=== PATIENT | male | born 1945 | race Caucasian/White ===

== ENCOUNTER → 2016-08-22 | Outpatient (CLI) | payer OTHER, BC | LOC: MMPC 09:00 | DX: Z79.01 Long term (current) use of anticoagulants (principal); Z51.81 Encounter for therapeutic drug level monitoring; I26.99 Other pulmonary embolism without acute cor pulmonale; D68.2 Hereditary deficiency of other clotting factors | CPT/HCPCS: 85610 ==

== ENCOUNTER → 2016-08-31 | Outpatient (CLI) | payer OTHER, BC | LOC: MMPC 11:11 | PROVIDERS: ATTEND Physician Assistant | DX: J01.90 Acute sinusitis, unspecified (principal) | CPT/HCPCS: 99213; G0463 ==

== ENCOUNTER → 2016-09-22 | Outpatient (CLI) | payer OTHER, BC | LOC: MMPC 09:00 | DX: Z79.01 Long term (current) use of anticoagulants (principal); Z51.81 Encounter for therapeutic drug level monitoring; I26.99 Other pulmonary embolism without acute cor pulmonale; D68.2 Hereditary deficiency of other clotting factors | CPT/HCPCS: 85610 ==

== ENCOUNTER → 2016-10-10 | Outpatient (CLI) | payer OTHER, BC | LOC: MMPC 09:00 | DX: G47.33 Obstructive sleep apnea (adult) (pediatric) (principal); M10.9 Gout, unspecified; E66.9 Obesity, unspecified; I26.99 Other pulmonary embolism without acute cor pulmonale; D68.2 Hereditary deficiency of other clotting factors; I10 Essential (primary) hypertension; E78.5 Hyperlipidemia, unspecified; E11.9 Type 2 diabetes mellitus without complications | CPT/HCPCS: 99213; G0463 ==

== ENCOUNTER → 2016-10-27 | Outpatient (CLI) | payer OTHER, BC | LOC: MMPC 09:00 | DX: Z79.01 Long term (current) use of anticoagulants (principal); Z51.81 Encounter for therapeutic drug level monitoring; I26.99 Other pulmonary embolism without acute cor pulmonale; D68.2 Hereditary deficiency of other clotting factors | CPT/HCPCS: 85610 ==

== ENCOUNTER → 2016-12-22 | Outpatient (CLI) | payer OTHER, BC | LOC: MMPC 09:00 | DX: Z79.01 Long term (current) use of anticoagulants (principal); Z51.81 Encounter for therapeutic drug level monitoring; I26.99 Other pulmonary embolism without acute cor pulmonale; D68.2 Hereditary deficiency of other clotting factors | CPT/HCPCS: 85610 ==

== ENCOUNTER → 2017-01-09 | Outpatient (CLI) | payer OTHER, BC ==
[2017-01-09 12:57] LABS: BASOPHILS # (AUTO) 0.02 10*3/UL; BASOPHILS % (AUTO) 0.3 % (0-1); EOSINOPHILS # (AUTO) 0.08 10*3/UL; EOSINOPHILS % (AUTO) 1.1 % (0-8); HEMATOCRIT 43.8 % (42.0-52.0); HEMOGLOBIN 14.7 g/dL (14.0-18.0); MEAN CORPUSCULAR HEMOGLOBIN 27.9 PG (27-31); MEAN CORPUSCULAR HGB CONC 33.6 g/dL (33-37); MEAN CORPUSCULAR VOLUME 83.3 FL (80-90); MEAN PLATELET VOLUME 10.3 FL (7.4-12.2); MONOCYTES % (AUTO) 9.3 % (5-15); NEUTROPHILS # (AUTO) 5.07 10*3/UL; NEUTROPHILS % (AUTO) 67.5 % (50-80); RED BLOOD COUNT 5.26 10^6/uL (4.70-6.10)
[2017-01-09 12:58] LABS: BILIRUBIN,URINE NEGATIVE (NEG); CLARITY,URINE CLEAR (CLEAR); COLOR,URINE YELLOW; GLUCOSE, URINE (UA) NEGATIVE (NEG); NITRATE,URINE NEGATIVE (NEG); OCCULT BLOOD,URINE NEGATIVE (NEG); PROTEIN,URINE NEGATIVE (NEG)
[2017-01-09 13:01] LABS: PLATELET MORPHOLOGY COMMENT NORMAL MORPHOLOGY (NORM); RBC MORPHOLOGY COMMENT NORMAL MORPHOLOGY (NORM); WBC MORPHOLOGY COMMENT NORMAL MORPHOLOGY (NORM)
[2017-01-09 13:08] LABS: RBC,URINE 0-1 /hpf; SQUAMOUS EPITHELIAL CELL,UR FEW; URINE SAMPLE TYPE VOIDED SPECIMEN
[2017-01-09 13:11] LABS: CREATININE, URINE 132.2 MG/DL (15-500)
[2017-01-09 13:22] LABS: CHOL/HDL RATIO 3.65 RATIO (0-4.0); URIC ACID 4.1 mg/dl (3.8-8.5)
[2017-01-09 13:23] LABS: BLOOD UREA NITROGEN 20 mg/dL (7-22); CALCIUM 9.5 mg/dL (8.7-10.7); EST GLOMERULAR FILTRATION > 60 (>60 ml/min/1.73m(2)); SERUM ALBUMIN 4.1 g/dL (3.5-4.8)
[2017-01-09 13:26] LABS: HEMOGLOBIN A1C 5.92 % (4.2-6.0)
== END ==
LOC: MOB LAB 11:40
DX: E11.9 Type 2 diabetes mellitus without complications (principal); G47.33 Obstructive sleep apnea (adult) (pediatric); E78.5 Hyperlipidemia, unspecified; I10 Essential (primary) hypertension; E55.9 Vitamin D deficiency, unspecified; M10.9 Gout, unspecified; D68.2 Hereditary deficiency of other clotting factors; Z79.01 Long term (current) use of anticoagulants; Z12.5 Encounter for screening for malignant neoplasm of prostate
CPT/HCPCS: 36415; 80053; 80061; 81001; 82043; 82306; 83036; 84443; 84550; 85025; 99213; G0103; G0463

== ENCOUNTER → 2017-01-23 | Outpatient (CLI) | payer OTHER, BC | LOC: MMPC 09:00 | DX: Z79.01 Long term (current) use of anticoagulants (principal); Z51.81 Encounter for therapeutic drug level monitoring; D68.2 Hereditary deficiency of other clotting factors; I26.99 Other pulmonary embolism without acute cor pulmonale | CPT/HCPCS: 85610 ==

== ENCOUNTER → 2017-02-20 | Outpatient (CLI) | payer OTHER, BC | LOC: MMPC 09:00 | DX: Z79.01 Long term (current) use of anticoagulants (principal); Z51.81 Encounter for therapeutic drug level monitoring; I26.99 Other pulmonary embolism without acute cor pulmonale; D68.2 Hereditary deficiency of other clotting factors | CPT/HCPCS: 85610 ==

== ENCOUNTER → 2017-03-16 | Outpatient (CLI) | payer OTHER, BC ==
--- NOTE | 2017-03-16 13:44 | EKG ---
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
[2017-03-16 15:42] LABS: BASOPHILS # (AUTO) 0.02 10*3/UL; BASOPHILS % (AUTO) 0.2 % (0-1); EOSINOPHILS % (AUTO) 1.2 % (0-8); HEMATOCRIT 39.2 % (42.0-52.0); HEMOGLOBIN 13.2 g/dL (14.0-18.0); LYMPHOCYTES # (AUTO) 1.51 10*3/uL; MEAN CORPUSCULAR HGB CONC 33.7 g/dL (33-37); MEAN CORPUSCULAR VOLUME 83.2 FL (80-90); MEAN PLATELET VOLUME 11.2 FL (7.4-12.2); MONOCYTES % (AUTO) 8.7 % (5-15); NEUTROPHILS # (AUTO) 5.71 10*3/UL; NEUTROPHILS % (AUTO) 70.6 % (50-80); RED BLOOD COUNT 4.71 10^6/uL (4.70-6.10)
[2017-03-16 15:44] LABS: PLATELET MORPHOLOGY COMMENT NORMAL MORPHOLOGY (NORM); RBC MORPHOLOGY COMMENT NORMAL MORPHOLOGY (NORM); WBC MORPHOLOGY COMMENT NORMAL MORPHOLOGY (NORM)
[2017-03-16 15:51] LABS: BLOOD UREA NITROGEN 23 mg/dL (7-22); BUN/CREATININE RATIO 25.55 (6-20); CALCIUM 9.1 mg/dL (8.7-10.7); EST GLOMERULAR FILTRATION > 60 (>60 ml/min/1.73m(2)); SERUM ALBUMIN 3.5 g/dL (3.5-4.8)
== END ==
LOC: MOB LAB 13:25
DX: M75.121 Complete rotator cuff tear or rupture of right shoulder, not specified as traumatic (principal); E11.9 Type 2 diabetes mellitus without complications; G47.33 Obstructive sleep apnea (adult) (pediatric); M10.9 Gout, unspecified; E66.9 Obesity, unspecified; Z86.711 Personal history of pulmonary embolism; V86.59XA Driver of other special all-terrain or other off-road motor vehicle injured in nontraffic accident, initial encounter; Y93.89 Activity, other specified; Y92.73 Farm field as the place of occurrence of the external cause
CPT/HCPCS: 36415; 80053; 85025; 93005; 93010

== ENCOUNTER → 2017-03-24 | Outpatient (CLI) | payer OTHER, BC | LOC: MMPC 09:00 | DX: Z79.01 Long term (current) use of anticoagulants (principal); Z51.81 Encounter for therapeutic drug level monitoring; I26.99 Other pulmonary embolism without acute cor pulmonale; D68.2 Hereditary deficiency of other clotting factors | CPT/HCPCS: 85610 ==

== ENCOUNTER → 2017-03-27 | Outpatient (CLI) | payer OTHER, BC | LOC: MMPC 09:00 | DX: Z79.01 Long term (current) use of anticoagulants (principal); Z51.81 Encounter for therapeutic drug level monitoring; I26.99 Other pulmonary embolism without acute cor pulmonale; D68.2 Hereditary deficiency of other clotting factors | CPT/HCPCS: 85610; 99213 ==

== ENCOUNTER 2018-10-24 13:51 | Inpatient (IN) ==
[~2018-10-24 13:51] MED LIST: LIDOCAINE W/ SODIUM BICARB 0.5 ML SYR ONE; Lactated Ringers 1,000 ML PRIMARY IV ONE
[2018-10-24] MEDS ORDERED: MIDAZOLAM HCL 2 MG/2 ML VIAL ONE ×3 (15:33→15:34)
[2018-10-24] MEDS ORDERED: fentaNYL Inj 100 MCG/2 ML VIAL ONE (15:33)
[2018-10-24] MEDS ORDERED: PROPOFOL 10 MG/1 ML (200 MG/20 ML) VIAL IV ONE (15:34)
[2018-10-24] MEDS ORDERED: Ketorolac Inj 30 MG, Morphine Inj (Ortho Cocktail) 4 MG, BUPivacaine Inj 0.25% PF 150 MG SPLASH ONE ×3 (15:35)
[2018-10-24] MEDS ORDERED: Sodium Chloride 0.9% vial 20 ML ONE ×2 (15:59)
[2018-10-24] MEDS ORDERED: BUPivacaine Liposome/PF (Exparel) Inj 20ml vial INFIL ONE (15:59)
[2018-10-24] MEDS ORDERED: BACITRACIN 50,000 UNIT VIAL IRRIG ONE (15:59)
[2018-10-24] MEDS ORDERED: Nasal Sanitizer POPSWAB ampule 3 AMP (Nozin) PREOP DOSE ENOS SCH (16:00)
[2018-10-24] MEDS ORDERED: ceFAZolin Inj 3 GM in Sodium Chloride 0.9% 100 ML IV ONE (16:00)
[2018-10-24] MEDS ORDERED: LIDOCAINE W/ SODIUM BICARB 0.5 ML SYR SUBD ONE (16:00)
[2018-10-24] MEDS ORDERED: Lactated Ringers 1,000 ML PRIMARY IV SCH (16:00)
[2018-10-24] MEDS ORDERED: LIDOCAINE HCL 2 % 10 ML JELLY URO-JECT TOPICAL ONE (16:23)
[2018-10-24] MEDS ORDERED: LIDOCAINE HCL 2 % 10 ML JELLY URO-JECT TOPICAL PRN ×2 (16:44→21:03)
[2018-10-24] MEDS ORDERED: ePHEDrine Inj 50 MG/ML AMP ONE (17:23)
[2018-10-24] MEDS ORDERED: TRANEXAMIC ACID 1,000 MG / 10 ML VIAL ONE ×2 (17:24→18:10)
[2018-10-24] MEDS ORDERED: fentaNYL Inj 250 MCG/5 ML VIAL ONE ×3 (17:32→19:52)
[2018-10-24] MEDS ORDERED: Lactated Ringers 1,000 ML PRIMARY IV ONE (17:52)
[2018-10-24] MEDS ORDERED: ONDANSETRON 4 MG/2 ML VIAL ONE (19:34)
[2018-10-24] MEDS ORDERED: KETOROLAC 30 MG/1 ML VIAL ONE (19:35)
--- NOTE | 2018-10-24 19:44 | ORTHO.OP ---
Surgery Date: 10/24/18 Preoperative Diagnosis: Right knee OA Postoperative Diagnosis: same Procedure: Right TKA Surgeon: Bill Hernandez MD Keying Machine Operator: Jia Frazier PA-C Anesthesia Provider: Juan Diego Gayle MD Anesthesia Type: General, Regional (spinal/adductor) Estimated Blood Loss (mL): 150 Fluids: 1900 mL LR Pathology: none Findings: See Operative Note Indications: See Operative Note Complications: None
[2018-10-24] MEDS ORDERED: MORPHINE SULFATE 2 MG/1 ML IVP PRN (19:48)
[2018-10-24] MEDS ORDERED: LIDOCAINE W/ SODIUM BICARB 0.5 ML SYR SUBD PRN (19:48)
[2018-10-24] MEDS ORDERED: fentaNYL Inj 100 MCG/2 ML VIAL IVP PRN (19:48)
[2018-10-24] MEDS ORDERED: HYDROmorphone 2 MG/1 ML IVP PRN (19:48)
[2018-10-24] MEDS ORDERED: Meperidine Inj 50 MG/ML CARPUJECT IVP PRN (19:48)
--- NOTE | 2018-10-24 19:50 | CRNA.PROGR ---
Anesthesia Time - Procedure/Recovery Time Start Date: 10/24/18 End Date: 10/24/18 Anesthesia : Time In: 16:51 Anesthesia : Time Out: 19:44 Anesthesia : Total Time: 173 - Total Anesthesia Time Total Anesthesia Time (minutes): 173 - Other Weight: 115.666 kg Height: 6 ft Body Mass Index (BMI): 34.5 Anesthesia Type: Spinal Block, General Anesthesia : LMA PostOp Pain Management: Femoral (Single Injection)
--- NOTE | 2018-10-24 19:50 | CRNA.PROGR ---
Anesthesia Recovery Phase I - Post Anesthesia Evaluation Pain Level: 5
--- NOTE | 2018-10-24 19:52 | CRNA.PROCE ---
Nerve Block Documentation - - Type of Nerve Block Used: Right Femoral Nerve Block Position for Nerve Block: Supine Moniters Used During Block: EKG, SPO2, NIBP Oxygen Supplemented: Yes Sedation Used - Enter Amount in Comment Field [ANES.SEDAT]: Midazolam (mg): Yes (6mg), Fentanyl (mcg): Yes (100mcg) Skin Prep Used: ChloroPrep Technique: Ultrasound Nerve Block Needle Used: 100 mm ProBlk II Local Anesthetic - Enter Amt in Comment Field [ANES.LOCNB]: 0.5 % Bupivacaine Plain (mL): Yes (30) - - PreOp Block : Time In: 16:00 PreOp Block : Time Out: 16:15 Anesthesia Time - Other Weight: 115.666 kg Height: 6 ft Body Mass Index (BMI): 34.5
[2018-10-24] MEDS: fentaNYL Inj 250 MCG/5 ML VIAL IVP PRN ×3 (19:53→20:17)
--- NOTE | 2018-10-24 19:54 | CRNA.PROCE ---
Central Neuraxis Block [facility] - - Safety Measures: Time Out Taken - - Type of Block: Subarachnoid Reason for Block: Surgical Moniters Used During Block: EKG, SPO2, NIBP Sedation Used - Enter Amount Used in Comment Field: Midazolam (mg): Yes (6mg), Fentanyl (mcg): Yes (100mcg) Positioning: Lateral Skin Prep Used: ChloroPrep Draped: Yes Skin Infiltration - Enter Amount Used in Comment Field: 1% Xylocaine (mL): Yes (2ml) Spinal Needle Used: 25 Qwincke Local Anesthetic - Enter Amount Used in Comment Field: 0.75 % Bupivacaine with Dextrose (ml): Yes (1.5ml) Bioclusive Dressing Applied: No Anesthesia Time - Block Time PreOp Block : Time In: 16:00 PreOp Block : Time Out: 16:15 - Other Weight: 115.666 kg Height: 6 ft Body Mass Index (BMI): 34.5
[2018-10-24 20:18] LABS: Hematocrit [HCT] 38.9 % (42.0-52.0); Hemoglobin [HGB] 13.6 g/dL (14.0-18.0)
[2018-10-24] MEDS ORDERED: ONDANSETRON 4 MG/2 ML VIAL IVP PRN (21:03)
[2018-10-24] MEDS ORDERED: Warfarin Tab 2.5 MG TAB PO ONE (21:30)
--- NOTE | 2018-10-24 21:38 | PDOC ---
HPI - History of Present Illness Date of Service: 10/24/18 Time of Service: 21:33 Chief Complaint: Right knee pain History of Present Illness: The very pleasant 73-year-old male who is postoperative from a right total knee arthroplasty performed by Dr. Hernandez today. See his notes regarding the surgical procedure. Hospital service was asked to help address and advise on issues such as factor V Leiden with history of 2 prior DVTs although one apparently was a distal popliteal vein DVT, diabetes, hypertension, amongst other medical issues. The patient currently states that he has no complaints of chest pain, shortness breath, nausea or vomiting. He states that he can feel his leg and his toes on the right lower extremity. At this time he has no other complaints. I spoke with his daughter at bedside. The patient is been on Coumadin for nearly 20 years, but is interested in learning more about the new medications. He is not sure he wants to change to one of the novel oral anticoagulants. At this time, the patient remains fairly sleepy and would like to rest tonight. The patient's surgery was actually scheduled for yesterday, but he had hypokalemia so was held off until today and he had a potassium infusion yesterday and his potassium was normal today. The patient's daughter tells me that the patient has hypertension and that he was recently started on a diuretic but I do not know if supplemental potassium was given at that time. He started that medication on Monday prior to surgery. I'm told that he normally runs low normal potassium levels. Past Medical History Medical History: 1. Diabetes mellitus type II. 2. Hypertension. 3. Sleep apnea on CPAP therapy currently with some oxygen at nighttime as well. 4. Gouty arthropathy. 5. History of pulmonary emboli with factor V Leiden. 6. Tremor. 7. Macular degeneration Surgical History: 1. Knee scopes. 2. Shoulder surgery. 3. Tonsillectomy Pertinent Family History: Patient does have a family history of factor V Leiden, including his daughter. Past Social History: Does not smoke or drink alcohol. Lives here in [place], [place]. Tobacco Use: Never Smoker In the Past 12 Months, Have Used or Abuse Any of the Following Substance: None Alcohol Use: None Medication / Allergies Home Medications: Home Medications Medication Instructions Recorded Confirmed Type Aspirin [Aspirin EC] 81 mg PO QD #30 tab 02/03/15 10/24/18 History vit C 250 mg-E 200 unit-zinc 40 1 tab PO BID #1 cap 05/28/18 10/24/18 Rx mg-copper 1 [id number] capsule benazepril 40 mg tablet 40 mg PO QD #90 tab 09/04/18 10/24/18 Rx pravastatin 80 mg tablet 80 mg PO QHS #90 tab 09/04/18 10/24/18 Rx probenecid 500 mg tablet 500 mg PO QD #90 tab 09/04/18 10/24/18 Rx triamterene 37.5 1 cap PO QD #90 cap 09/04/18 10/24/18 Rx mg-hydrochlorothiazide 25 mg capsule warfarin 7.5 mg tablet See Rx Instructions .ROUTE 09/04/18 10/24/18 Rx .COMPLEX #90 tablet potassium chloride ER 10 mEq 10 meq PO QDAY #30 cap 09/28/18 10/24/18 Rx capsule,extended release enoxaparin 120 mg/0.8 mL 120 mg SUBCUT Q12H #8 ml 10/02/18 10/24/18 Rx subcutaneous syringe chlorthalidone 25 mg tablet 25 mg PO QDAY #30 tab 10/11/18 10/24/18 Rx Hydrocodone/Acetaminophen 1 - 2 ea PO Q4-6H PRN #70 tab 10/24/18 Rx [Hydrocodon-Acetaminoph 7.5-325] Allergies/Adverse Reactions: Allergies Allergy/AdvReac Type Severity Reaction Status Date / Time No Known Drug Allergies Allergy NOT Verified 10/23/18 06:02 APPLICABLE Review of Systems - Respiratory Respiratory: REPORTS: Negative System Review - Cardiovascular Cardiovascular: REPORTS: Negative System Review - Gastrointestinal Gastrointestinal / Abdominal: REPORTS: Negative System Review Exam - Vitals Vital Signs: Vital Signs Temperature 96.8 F Temperature Source Temporal Artery Scan Pulse Rate [Pulse Oximeter] 65 Pulse Rate 69 Respiratory Rate 20 Blood Pressure [Left Arm] 155/82 Blood Pressure 165/91 Pulse Ox 95 Oxygen Flow Rate 2 Oxygen Delivery Method Nasal Cannula Height 6 ft Weight 253 lb - General General Appearance: No Acute Distress, Cooperative - Head Head Exam: Normal Inspection, Normocephalic, Atraumatic - Eye Eye Exam: POSITIVE: No Scleral Icterus - ENT ENT Exam: POSITIVE: Mucous Membranes Moist - Neck Neck Exam: JVP is not Raised - Respiratory Respiratory Exam: POSITIVE: Clear to Auscultation - Bilaterally, Breathing Non Labored - Cardiovascular Cardiovascular Exam: POSITIVE: RRR, No Murmur, No Clicks, No Gallops, No Rubs, No JVD - GI/Abdominal GI/Abdominal Exam: POSITIVE: Normal Bowel Sounds, Non Tender, Non Distended, Soft - Rectal Rectal Exam: POSITIVE: Deferred - External Exam: POSITIVE: Deferred Exam: POSITIVE: Deferred - Extremities Extremities Exam: POSITIVE: No Clubbing Present, No Edema Present, No Cyanosis P resent Additional Extremities Exam Details: Creatinine is dressed, ice is in place. Bandage is clean, dry, intact - Neurological Neurological Exam: POSITIVE: Alert, Oriented x 3, No Facial Droop, Speech Intact / Clear Results - Labs CBC and BMP: 10/24/18 20:15 Additional Lab Results: 03/11/13 03/16/17 09/28/18 06:03 15:33 07:17 WBC 7.19 Hgb RDW 13.3 Plt Count 220 Sodium Potassium Chloride Carbon Dioxide Anion Gap BUN Creatinine Estimated GFR > 60 Glucose Hemoglobin A1c Uric Acid Calcium Total Bilirubin AST ALT Alkaline Phosphatase Total Protein Albumin Globulin Albumin/Globulin Ratio Triglycerides Cholesterol LDL Cholesterol, Calc VLDL Cholesterol HDL Cholesterol Cholesterol/HDL Ratio PSA Screen Vitamin D 25-Hydroxy TSH Ur Culture Indicated? 09/28/18 09/28/18 09/28/18 07:17 07:17 07:17 WBC Hgb RDW Plt Count Sodium 141 Potassium Chloride 105 Carbon Dioxide 29 Anion Gap 7 BUN 28 H Creatinine 0.9 Estimated GFR Glucose 92 Hemoglobin A1c 5.29 Uric Acid 6.4 Calcium 9.7 Total Bilirubin 0.5 AST 21 ALT 25 Alkaline Phosphatase 60 Total Protein 7.1 Albumin 4.1 Globulin 3.1 Albumin/Globulin Ratio 1.30 Triglycerides 100 Cholesterol 168 LDL Cholesterol, Calc 105.000 VLDL Cholesterol 20 HDL Cholesterol 43 Cholesterol/HDL Ratio 3.90 PSA Screen 1.54 Vitamin D 25-Hydroxy 44.7 TSH 2.38 Ur Culture Indicated? 10/23/18 10/24/18 10/24/18 05:55 08:04 20:15 WBC Hgb 13.6 L RDW Plt Count Sodium Potassium 3.9 Chloride Carbon Dioxide Anion Gap BUN Creatinine Estimated GFR Glucose Hemoglobin A1c Uric Acid Calcium Total Bilirubin AST ALT Alkaline Phosphatase Total Protein Albumin Globulin Albumin/Globulin Ratio Triglycerides Cholesterol LDL Cholesterol, Calc VLDL Cholesterol HDL Cholesterol Cholesterol/HDL Ratio PSA Screen Vitamin D 25-Hydroxy TSH Ur Culture Indicated? Culture not set - EKG Data -: EKG Interpreted by Me Rate: Normal EKG Shows Normal: Sinus Rhythm - EKG Data EKG Interpretation: Other (this EKG is from 09/28/2018) Assessment and Plan - Patient Problems (1) DM2 (diabetes mellitus, type 2) Current Visit: Yes Status: Acute Code(s): E11.9 - Type 2 diabetes mellitus without complications Qualifiers: Diabetes mellitus local intermodal truck driver insulin use: without local intermodal truck driver use Diabetes stephen litus complication status: without complication Qualified Code(s): E11.9 - Type 2 diabetes mellitus without complications (2) Factor V deficiency Current Visit: Yes Status: Chronic Onset Date: 06/09/14 Code(s): D68.2 - Hereditary deficiency of other clotting factors (3) HTN (hypertension) Current Visit: Yes Status: Chronic Onset Date: 06/09/14 Code(s): I10 - Essential (primary) hypertension Qualifiers: Hypertension type: essential hypertension Qualified Code(s): I10 - Essential (primary) hypertension (4) Hyperlipidemia Current Visit: Yes Status: Chronic Onset Date: 01/09/17 Code(s): E78.5 - Hyperlipidemia, unspecified Qualifiers: Hyperlipidemia type: unspecified Qualified Code(s): E78.5 - Hyperlipidemia, unspecified (5) Obstructive sleep apnea syndrome Current Visit: Yes Status: Chronic Onset Date: 08/15/11 Code(s): G47.33 - Obstructive sleep apnea (adult) (pediatric) (6) Status post right knee replacement Current Visit: Yes Status: Acute Code(s): Z96.651 - Presence of right artificial knee joint - Assessment / Plan Additional Assessment/Plan Details: The patient would be considered high thrombotic risk based on DVT within the preceding 12 months and factor V Leiden status, however as he has had a knee replacement, he is also at major risk to bleed. Per current clinical guidelines, the recommendations would be to resume Coumadin which is already been done. However given that the surgery has just occurred today, I would recommend reducing the Lovenox dose to a prophylactic dose for at least the first 24 hours. Once the surgical bed is secured from the surgeon's perspective from a bleeding risk, on day 2 her day 3, full dose Lovenox therapy could be treated until an INR is between 2.0 and 3.0 for 48 hours and then discontinue Lovenox. This can be [facility] a.[facility] PT and OT. Pain medications as per orthopedics. Terms of his by mouth medications at home, I'm going to hold off on DIONE inhibitor. Although he is hypertensive but like to see what his volume status does over the next 24 hours before initiating an DIONE inhibitor as they are known to cause perioperative and postoperative renal failure and hypotension. We can resume that in the next 12-24 hours assuming patient has euvolemic status. I will go ahead and resume the chlorthalidone with potassium. Given the multiple electrolyte problems that I see with triamterene hydrochlorothiazide in the setting of surgery is all just hold that medication for now and he can resume that as an outpatient. We'll talk to him about his choices in terms of anticoagulation, for the long- term, and even consider helping the patient arrange a hematology evaluation post hospital stay. Thank you for this consult and will be our pleasure to continue to advise and assist in the management of this patient during his hospital stay.
[2018-10-24] MEDS: ASPIRIN EC 81 MG TABLET PO SCH (22:16)
[2018-10-24] MEDS ORDERED: ENOXAPARIN SODIUM 40 MG/0.4 ML SYRINGE SUBCUT ONE (22:18)
[2018-10-24] MEDS: ENOXAPARIN SODIUM 120 MG/0.8 ML SYRINGE SUBCUT SCH (22:19)
[2018-10-24] MEDS: Pravastatin 80mg Tab PO SCH (22:32)
[2018-10-24] MEDS: DOCUSATE 100 MG CAPSULE PO SCH (22:32)
[2018-10-24] MEDS: Lactated Ringers 1,000 ML PRIMARY IV SCH (22:32)
--- NOTE | 2018-10-25 00:20 | DI ---
XR KNEE 1 OR 2 VWS,10/24/2018 7:53 PM: Clinical History: Status post right total knee arthroplasty. Previous Exam: September 12, 2011 Findings: AP and lateral views of the right knee are obtained, and demonstrate anatomic alignment without fract ures. Patient is status post right total knee arthroplasty. There is subcutaneous air noted. There is no hardware loosening. Impression: Status post right total knee arthroplasty.
[2018-10-25] MEDS: ceFAZolin Inj 3 GM in Sodium Chloride 0.9% 100 ML IV SCH ×2 (01:04→11:04)
[2018-10-25] MEDS: HYDROcodone-APAP 7.5 MG-325 MG TABLET PO PRN ×3 (01:06→17:31)
[2018-10-25 05:50] LABS: Hematocrit [HCT] 34.8 % (42.0-52.0); Hemoglobin [HGB] 11.5 g/dL (14.0-18.0); MEAN CORPUSCULAR HEMOGLOBIN 28.1 PG (27-31); MEAN CORPUSCULAR VOLUME 85.1 FL (80-90); MEAN PLATELET VOLUME 10.3 FL (7.4-12.2); RED BLOOD COUNT 4.09 10^6/uL (4.70-6.10)
[2018-10-25] MEDS ORDERED: LIDOCAINE W/ SODIUM BICARB 0.5 ML SYR SUBD ONE (06:00)
[2018-10-25] MEDS ORDERED: ceFAZolin Inj 2gm (Premix) 2 GM/50 ML BAG IV ONE (06:00)
[2018-10-25] MEDS ORDERED: Nasal Sanitizer POPSWAB ampule 3 AMP (Nozin) PREOP DOSE ENOS SCH (06:00)
[2018-10-25] MEDS ORDERED: Lactated Ringers 1,000 ML PRIMARY IV SCH (06:00)
[2018-10-25 06:17] LABS: BLOOD UREA NITROGEN 21 mg/dL (7-22); BUN/CREATININE RATIO 26.25 (6-20)
[2018-10-25] MEDS: DOCUSATE 100 MG CAPSULE PO SCH ×2 (08:48→22:17)
[2018-10-25] MEDS: ENOXAPARIN SODIUM 120 MG/0.8 ML SYRINGE SUBCUT SCH ×2 (08:48→22:17)
[2018-10-25] MEDS: ASPIRIN EC 81 MG TABLET PO SCH (08:48)
[2018-10-25] MEDS: CHLORTHALIDONE 50 MG TABLET PO SCH (08:48)
[2018-10-25] MEDS: Beta Carot W/Vit E,C,Min Tab 1 TAB TAB PO SCH ×2 (08:49→22:16)
[2018-10-25] MEDS ORDERED: Potassium Chloride Tab 10 MEQ TAB PO SCH (09:00)
--- NOTE | 2018-10-25 09:21 | ORTHO.PROG ---
Last Taken Vital Signs: Vital Signs - Last Taken Temperature 98.7 F 10/25/18 07:01 Pulse Rate 63 10/25/18 07:01 Respiratory Rate 12 10/25/18 07:01 Blood Pressure 126/65 10/25/18 07:01 Pulse Ox 96 10/25/18 07:01 Subjective: Patient reports he was able to get some sleep last night. He states his pain is controlled currently. He has only taken 1 pain pill through the night. Denies any calf pain, CP, SOB, F/C, palpitations, dizziness. He is ready to go home today. Objective: Laboratory Results 10/24/18 10/24/18 10/25/18 14:09 20:15 05:20 WBC 10.47 RBC 4.09 L Hgb 13.6 L 11.5 L Hct 38.9 L 34.8 L MCV 85.1 MCH 28.1 MCHC 33.0 RDW Std Deviation 45.1 RDW Coeff of Kevin 14.8 H Plt Count 199 MPV 10.3 PT 10.4 INR 1.02 Sodium Potassium Chloride Carbon Dioxide Anion Gap BUN Creatinine BUN/Creatinine Ratio Glucose Calculated Osmolality Calcium 10/25/18 05:20 WBC RBC Hgb Hct MCV MCH MCHC RDW Std Deviation RDW Coeff of Kevin Plt Count MPV PT INR Sodium 137 Potassium 3.5 L Chloride 102 Carbon Dioxide 29 Anion Gap 6 BUN 21 Creatinine 0.8 BUN/Creatinine Ratio 26.25 H Glucose 98 Calculated Osmolality 286.0 Calcium 8.8 On exam, A&O x 3 not in any acute distress. Dressing c/d/i. Negative calf tenderness. NV intact. AROM of the ankle and toes without difficulties. Assessment: POD 1 s/p Right routine TKA overall doing well. Patient does have hypokalemia. Plan: * hypokalemia: getting IV KCl today per hospitalist and taking baseline PO as well * H/H stable * continue hydrocodone for PO pain * DVT ppx: continue lovenox bridge with baseline coumadin * knee immobilizer while ambulating x 24 hours for spinal block; may d/c once cleared by PT * WBAT with walker * PT per TKA protocol * Wound care: may remove on POD 3 and shower, no soaking the incision * discharge home once cleared by hospitalist and PT * follow-up with ortho in 1 week as scheduled
[2018-10-25] MEDS: Lactated Ringers 1,000 ML PRIMARY IV SCH ×2 (10:23→20:01)
[2018-10-25] MEDS: PROBENECID 500 MG PO SCH (10:25)
--- NOTE | 2018-10-25 10:27 | PTI REPORT ---
Thank you for the referral of Greg Lima. He was seen on 10/25/18 for an inpatient evaluation status post right total knee arthroplasty. SUBJECTIVE: The patient is a 73-year-old male who underwent a right total knee replacement yesterday by Dr. Hernandez. The patient was in his room rating his knee pain at a 4/10 on the verbal analog scale (0=no pain, 10=worst pain). PAST MEDICAL HISTORY: Past medical history can be found in the patient's medical record. OBJECTIVE FINDINGS: General observations: The patient is alert and oriented x3. The patient was placed in his knee immobilizer. Bed mobility: The patient transferred from supine to sit with moderate assist of one. Transfers: The patient transferred from sit to stand with moderate assist of one. Ambulation: The patient ambulated approximately 10 steps to the miky chair with use of a walker. The patient states there was a few tender moments throughout the transition, but he tolerated it well. ASSESSMENT: The patient is well versed in expectations for his knee. He will be very compliant and a willing participant. The patient is a good candidate for rehabilitation. Problem List: Pain in the right knee Decreased strength in the right knee Decreased range of motion in the right knee Short-Term Goals: To be met by discharge from inpatient: Patient will be able to transfer from bed to stand independently. Patient will be able to ambulate 100 feet with walker, weight-bearing as tolerated. Patient will be able to ascend and descend five stairs with walker, weight- bearing as tolerated. Long-Term Goals: To be met following discharge from inpatient: Patient will be seen by outpatient physical therapy. TREATMENT PLAN: Patient will be seen B.I.D during the week and one time per day over the weekend as an inpatient for transfer training, ambulation, stairs, and independence in all ADLs. INITIAL TREATMENT: Treatment today consisted of the initial evaluation activities only. CAT
--- NOTE | 2018-10-25 10:38 | CRNA.PROGR ---
Anesthesia Note - Progress Notes Anesthesia Progress Note: Post OP Anesthesia Note Pt is sitting up in bedside recliner. He is awake alert and oriented, he denies any significant pain. He is tolerating a regular diet well and denies any residual problems from the anesthetic. Current VS are stable. Vital Signs - Last Taken Temperature 98.7 F 10/25/18 07:01 Pulse Rate 63 10/25/18 07:01 Respiratory Rate 12 10/25/18 07:01 Blood Pressure 126/65 10/25/18 07:01 Pulse Ox 96 10/25/18 07:01
--- NOTE | 2018-10-25 15:51 | PT.PROG ---
Progress Note Progress Note: S. Patient stated that he is having a little pain this afternoon. O. Patient performed sit to stand transfer then ambulated 20 feet to the sink and back to the chair where he was left with nursing. A. Patient tolerated ambulation fair, he was struggling with mobility during ambulation, Patient was showing signs of pain however refusing pain. He would continue to benefit from skilled therapy to increase mobility, strength and safety at this time. P. Continue POC.
[2018-10-25] MEDS ORDERED: ACETAMINOPHEN 500 MG TABLET PO PRN (17:01)
--- NOTE | 2018-10-25 19:44 | PDOC(PROG) ---
Date of Service: 10/25/18 Time of Service: 11:00 Interval History: no chest pain, no shortness of breath. stated to me knee pain is controlled. Objective : Data - Labs CBC and BMP: 10/25/18 05:20 10/25/18 05:20 Objective : Exam - General General Appearance: No Acute Distress, Cooperative Additional General Exam Details: Selected Entries 10/25/18 07:01 Temperature 98.7 F Pulse Rate [Pulse Oximeter] 63 Respiratory Rate 12 Blood Pressure [Left Arm] 126/65 Pulse Ox 96 - Eye Eye Exam: No Scleral Icterus - ENT ENT Exam: Mucous Membranes Moist - Neck Neck Exam: JVP is not Raised - Respiratory Respiratory Exam: Clear to Auscultation - Bilaterally, Breathing Non Labored - Cardiovascular Cardiovascular Exam: RRR, No Murmur, No Clicks, No Gallops, No Rubs, No JVD - GI/Abdominal GI/Abdominal Exam: Normal Bowel Sounds, Non Tender, Non Distended, Soft - Extremities Extremities Exam: No Clubbing Present, No Edema Present, No Cyanosis Present Additional Extremities Exam Details: right lower extremity dressed, knee immobilizer in place - Neurological Neurological Exam: Alert, Oriented x 3, No Facial Droop, Speech Intact / Clear Assessment and Plan - Patient Problems (1) DM2 (diabetes mellitus, type 2) Current Visit: Yes Status: Acute Code(s): E11.9 - Type 2 diabetes mellitus without complications Qualifiers: Diabetes mellitus termination clerk insulin use: without termination clerk use Diabetes mellitus complication status: without complication Qualified Code(s): E11.9 - Type 2 diabetes mellitus without complications (2) Factor V deficiency Current Visit: Yes Status: Chronic Onset Date: 06/09/14 Code(s): D68.2 - Hereditary deficiency of other clotting factors (3) HTN (hypertension) Current Visit: Yes Status: Chronic Onset Date: 06/09/14 Code(s): I10 - Essential (primary) hypertension Qualifiers: Hypertension type: essential hypertension Qualified Code(s): I10 - Ess ential (primary) hypertension (4) Hyperlipidemia Current Visit: Yes Status: Chronic Onset Date: 01/09/17 Code(s): E78.5 - Hyperlipidemia, unspecified Qualifiers: Hyperlipidemia type: unspecified Qualified Code(s): E78.5 - Hyperlipidemia, unspecified (5) Obstructive sleep apnea syndrome Current Visit: Yes Status: Chronic Onset Date: 08/15/11 Code(s): G47.33 - Obstructive sleep apnea (adult) (pediatric) (6) Status post right knee replacement Current Visit: Yes Status: Acute Code(s): Z96.651 - Presence of right artificial knee joint - Assessment / Plan Additional Assessment/Plan Details: will discontinue triamterene/HCTZ. replace potassium lovenox/coumadin to therapeutic INR, I'd recommend continuing bridging for 48 hours from therapeutic INR PT and OT pain control as per orthopedics
[2018-10-25] MEDS ORDERED: Warfarin Tab 2.5 MG TAB PO ONE (21:00)
[2018-10-25] MEDS: Pravastatin 80mg Tab PO SCH (22:17)
[2018-10-26 05:04] LABS: Hematocrit [HCT] 33.1 % (42.0-52.0); Hemoglobin [HGB] 11.1 g/dL (14.0-18.0); MEAN CORPUSCULAR HEMOGLOBIN 28.2 PG (27-31); MEAN CORPUSCULAR HGB CONC 33.5 g/dL (33-37); MEAN CORPUSCULAR VOLUME 84.2 FL (80-90); MEAN PLATELET VOLUME 10.7 FL (7.4-12.2); RED BLOOD COUNT 3.93 10^6/uL (4.70-6.10)
[2018-10-26 05:21] LABS: BLOOD UREA NITROGEN 16 mg/dL (7-22)
[2018-10-26] MEDS: Potassium Chloride Tab 10 MEQ TAB PO SCH (08:11)
[2018-10-26] MEDS: Beta Carot W/Vit E,C,Min Tab 1 TAB TAB PO SCH ×2 (08:12→20:20)
[2018-10-26] MEDS: DOCUSATE 100 MG CAPSULE PO SCH ×2 (08:12→20:20)
[2018-10-26] MEDS: ENOXAPARIN SODIUM 120 MG/0.8 ML SYRINGE SUBCUT SCH ×2 (08:12→20:20)
[2018-10-26] MEDS: ASPIRIN EC 81 MG TABLET PO SCH (08:12)
[2018-10-26] MEDS: CHLORTHALIDONE 50 MG TABLET PO SCH (08:12)
[2018-10-26] MEDS: BENAZEPRIL HCL 20 MG TABLET PO SCH (08:12)
[2018-10-26] MEDS: PROBENECID 500 MG PO SCH (09:09)
--- NOTE | 2018-10-26 09:23 | ORTHO.PROG ---
Progress Note -: Vital Signs - Last Taken Temperature 98.6 F 10/26/18 06:58 Pulse Rate 76 10/26/18 06:58 Respiratory Rate 18 10/26/18 06:58 Blood Pressure 139/67 10/26/18 06:58 Pulse Ox 95 10/26/18 06:58 Laboratory Results 10/26/18 10/26/18 04:10 04:10 WBC 12.97 H RBC 3.93 L Hgb 11.1 L Hct 33.1 L MCV 84.2 MCH 28.2 MCHC 33.5 RDW Std Deviation 43.7 RDW Coeff of Kevin 14.5 Plt Count 171 MPV 10.7 Sodium 132 L Potassium 3.2 L Chloride 98 Carbon Dioxide 26 Anion Gap 8 BUN 16 Creatinine 0.8 BUN/Creatinine Ratio 20.00 Glucose 129 H Calculated Osmolality 276.0 Calcium 8.6 L Magnesium 1.6 Subjective: - Postop Day [1] Objective: - Taking PO pain medication - Tolerating regular diet - No Walton - voiding without difficulty - Ambulating - Labs and Vital Signs reviewed Assessment: - CMS intact - Prevena dressing intact Plan: - Discharge home once cleared by Physical Therapy - Nursing to provide and educated patient on changing dressing to a Silverlon dressing on postop day 7 or if Pervena losses suction before postop day 7
--- NOTE | 2018-10-26 09:29 | ORTHO.PROG ---
Progress Note -: Vital Signs - Last Taken Temperature 98.6 F 10/26/18 06:58 Pulse Rate 76 10/26/18 06:58 Respiratory Rate 18 10/26/18 06:58 Blood Pressure 139/67 10/26/18 06:58 Pulse Ox 95 10/26/18 06:58 Laboratory Results 10/26/18 10/26/18 04:10 04:10 WBC 12.97 H RBC 3.93 L Hgb 11.1 L Hct 33.1 L MCV 84.2 MCH 28.2 MCHC 33.5 RDW Std Deviation 43.7 RDW Coeff of Kevin 14.5 Plt Count 171 MPV 10.7 Sodium 132 L Potassium 3.2 L Chloride 98 Carbon Dioxide 26 Anion Gap 8 BUN 16 Creatinine 0.8 BUN/Creatinine Ratio 20.00 Glucose 129 H Calculated Osmolality 276.0 Calcium 8.6 L Magnesium 1.6 Subjective: - Postop Day [2 . pain controlled. no CP or SOB or Calf pain. Objective: - Taking PO pain medication - Tolerating regular diet - No Walton - voiding without difficulty - Ambulating no calf ttp - Labs and Vital Signs reviewed K=3.2 H/H Assessment: - CMS intact - Prevena dressing intact Plan: - Discharge home once cleared by Physical Therapy - Nursing to provide and educated patient on changing dressing to a Silverlon dressing on postop day 7 or if Pervena losses suction before postop day 7
[2018-10-26] MEDS ORDERED: POTASSIUM CHLORIDE 20 MEQ TAB PO ONE ×2 (10:03→12:39)
--- NOTE | 2018-10-26 12:10 | PT.PROG ---
Progress Note Progress Note: S. Patient stated that he is having some pain with movement. O. Patient ambulated 30 feet to the maldonado and back to the chair where he was left with alarm and call light. A. Patient tolerated ambulation fair, he required mod assist with sit to stand transfers and contact guard assist. Patient would continue to benefit from skilled therapy to increase strength, endurance and safety at this time. P. Continue POC.
--- NOTE | 2018-10-26 12:54 | PDOC(PROG) ---
Date of Service: 10/26/18 Time of Service: 12:51 Interval History: Patient seen, evaluated twice today. Discussed with daughter, Latia at bedside as well. No chest pain, shortness breath, nausea or vomiting. Potassium was low at 3.2. Patient does not do stairs yet for therapy. Endurance has been slow to improve. Objective : Data - Labs CBC and BMP: 10/26/18 04:10 10/26/18 04:10 Objective : Exam - General General Appearance: No Acute Distress, Cooperative Additional General Exam Details: Vital Signs - Last Taken Temperature 98.6 F 10/26/18 06:58 Pulse Rate 76 10/26/18 06:58 Respiratory Rate 18 10/26/18 06:58 Blood Pressure 139/67 10/26/18 06:58 Pulse Ox 95 10/26/18 06:58 - Eye Eye Exam: No Scleral Icterus - ENT ENT Exam: Mucous Membranes Moist - Neck Neck Exam: JVP is not Raised - Cardiovascular Cardiovascular Exam: RRR, No Murmur, No Clicks, No Gallops, No Rubs, No JVD - GI/Abdominal GI/Abdominal Exam: Normal Bowel Sounds, Non Tender, Non Distended, Soft - Extremities Extremities Exam: No Clubbing Present, No Edema Present, No Cyanosis Present - Neurological Neurological Exam: Alert, Oriented x 3, No Facial Droop, Speech Intact / Clear, Moves All Extremities Equally Assessment and Plan - Patient Problems (1) Hypokalemia Current Visit: Yes Status: Acute Code(s): E87.6 - Hypokalemia (2) DM2 (diabetes mellitus, type 2) Current Visit: Yes Status: Acute Code(s): E11.9 - Type 2 diabetes mellitus without complications Qualifiers: Diabetes mellitus buttermaker helper insulin use: without fpc use Diabetes mellitus complication status: without complication Qualified Code(s): E11.9 - Type 2 diabetes mellitus without complications (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 Onset Date: 06/09/14 Code(s): D68.2 - Hereditary deficiency of other clotting factors (4) HTN (hypertension) Current Visit: Yes Status: Chronic Onset Date: 06/09/14 Code(s): I10 - Essential (primary) hypertension Qualifiers: Hypertension type: essential hypertension Qualified Code(s): I10 - Essential (primary) hypertension (5) Hyperlipidemia Current Visit: Yes Status: Chronic Onset Date: 01/09/17 Code(s): E78.5 - Hyperlipidemia, unspecified Qualifiers: Hyperlipidemia type: unspecified Qualified Code(s): E78.5 - Hyperlipidemia, unspecified (6) Obstructive sleep apnea syndrome Current Visit: Yes Status: Chronic Onset Date: 08/15/11 Code(s): G47.33 - Obstructive sleep apnea (adult) (pediatric) (7) Status post right knee replacement Current Visit: Yes Status: Acute Code(s): Z96.651 - Presence of right artificial knee joint - Assessment / Plan Additional Assessment/Plan Details: Stop thiazide diuretics altogether. Replace potassium aggressively. I think the patient should have a routine in and aldosterone level measured. I had also ordered for tomorrow. Best the patient stays overnight as he could have underlying hyperaldosteronism causing hypertension and hypokalemia. This is further worsened in the setting of thiazide diuretics in terms of the hypokalemia. Still has more PT and OT gains to be safe for discharge to home. On Lovenox and Coumadin. Hopefully home tomorrow or Monday. Check potassium levels in morning. We'll also check a level this afternoon. Patient and daughter are in agreement with plan.
[2018-10-26] MEDS: HYDROcodone-APAP 7.5 MG-325 MG TABLET PO PRN (16:25)
--- NOTE | 2018-10-26 17:02 | PT.PROG ---
Progress Note Progress Note: S. Patient stated that he did not want to take any pain meds before going to therapy. A. Patient ambulated 30 feet to the wheelchair and was wheeled to the therapy gym where he had heat to his knee then performed, heel slides, quad sets, ankle pumps, short arc quads, all x 10. Patient ambulated 10 feet to the chair and was returned to his room where he transferred to the chair and was left with call light. A. Patient tolerated therapy poor, he was in too much pain to complete all exercises. Patient would continue to benefit from skilled therapy to meet goals. P. Continue POC.
[2018-10-26 18:00] LABS: BLOOD UREA NITROGEN 18 mg/dL (7-22)
[2018-10-26] MEDS: Pravastatin 80mg Tab PO SCH (20:20)
[2018-10-26] MEDS ORDERED: Warfarin Tab 2.5 MG TAB PO ONE (21:00)
[2018-10-27] MEDS: ASPIRIN EC 81 MG TABLET PO SCH (08:03)
[2018-10-27] MEDS: Beta Carot W/Vit E,C,Min Tab 1 TAB TAB PO SCH ×2 (08:03→20:17)
[2018-10-27] MEDS: HYDROcodone-APAP 7.5 MG-325 MG TABLET PO PRN ×2 (08:03→14:03)
[2018-10-27] MEDS: Potassium Chloride Tab 10 MEQ TAB PO SCH (08:03)
[2018-10-27] MEDS: ENOXAPARIN SODIUM 120 MG/0.8 ML SYRINGE SUBCUT SCH ×2 (08:03→20:16)
[2018-10-27] MEDS: DOCUSATE 100 MG CAPSULE PO SCH ×2 (08:03→20:17)
[2018-10-27] MEDS: BENAZEPRIL HCL 20 MG TABLET PO SCH (08:03)
[2018-10-27 08:18] LABS: Hematocrit [HCT] 28.9 % (42.0-52.0); Hemoglobin [HGB] 10.4 g/dL (14.0-18.0); MEAN CORPUSCULAR HEMOGLOBIN 29.9 PG (27-31); MEAN PLATELET VOLUME 9.9 FL (7.4-12.2); RED BLOOD COUNT 3.48 10^6/uL (4.70-6.10)
[2018-10-27 08:26] LABS: BLOOD UREA NITROGEN 18 mg/dL (7-22)
[2018-10-27] MEDS ORDERED: POTASSIUM CHLORIDE 20 MEQ TAB PO ONE ×2 (09:08→15:07)
[2018-10-27] MEDS ORDERED: Magnesium Sulfate 2gm (Premix) 2 GM/50 ML BAG IV ONE (09:08)
[2018-10-27] MEDS: PROBENECID 500 MG PO SCH (09:51)
--- NOTE | 2018-10-27 12:04 | OT.PROG ---
Progress Note Progress Note: S: pt reported he was doing ok. It was reported by his daughter that he has not been in his CPM much. O: pt was seen in room and competed bed mobility with mod A. He did complete transfer to [place] with mod INd as it took him longer to complete. He was transferred down to therapy in / and received moist heat. He completed SAQ, ankle pumps, 4 way ankle, heel slides all which required some tactile/passive assistance. He sat up with min A and completed LAQ all mainly passive. He was unable to perform ankle pumps in upright position. He needed min A to completed sit to stand and transferred back to [facility]. He returned to his room and was left in CPM for 1 hr. A: pt was instructed to be in CPM for one hr in morning and two in afternoon. He may benefit from continued therapy before d/c home to develop more quad control and Ind during transfers. It was discussed with pt to maybe stay through Monday. P: continue per pOC.
[2018-10-27] MEDS ORDERED: CELECOXIB 200 MG CAPSULE PO ONE (13:09)
--- NOTE | 2018-10-27 15:14 | PDOC(PROG) ---
Date of Service: 10/27/18 Time of Service: 15:07 Interval History: patient seen, evaluated earlier, discussed with daughter no chest pain no shortness of breath no nausea or vomiting daughter thinks patient has been a little more tired in AM, seems to be more alert in AM PATIENT DOES NOT HAVE DIABETES PT/OT report patient still struggling with quad muscle firing on right side, still needs more time with therapy. Objective : Data - Labs CBC and BMP: 10/27/18 08:05 10/27/18 08:05 Objective : Exam - General General Appearance: No Acute Distress, Cooperative Additional General Exam Details: Vital Signs - Last Taken Temperature 98.6 F 10/27/18 11:48 Pulse Rate 70 10/27/18 11:48 Respiratory Rate 21 10/27/18 11:48 Blood Pressure 134/66 10/27/18 11:48 Pulse Ox 95 10/27/18 11:48 - Eye Eye Exam: No Scleral Icterus - ENT ENT Exam: Mucous Membranes Moist - Neck Neck Exam: JVP is not Raised - Respiratory Respiratory Exam: Clear to Auscultation - Bilaterally, Breathing Non Labored - Cardiovascular Cardiovascular Exam: RRR, No Murmur, No Clicks, No Gallops, No Rubs, No JVD - GI/Abdominal GI/Abdominal Exam: Normal Bowel Sounds, Non Tender, Non Distended, Soft - Extremities Extremities Exam: No Clubbing Present, No Edema Present, No Cyanosis Present Additional Extremities Exam Details: incision is dressed with a clean, dry, intact dressing, swelling about as expected in knee and surrounding tissues out from knee replacement. 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 Onset Date: 06/09/14 Code(s): D68.2 - Hereditary deficiency of other clotting factors (3) HTN (hypertension) Current Visit: Yes Status: Chronic Onset Date: 06/09/14 Code(s): I10 - Essential (primary) hypertension Qualifiers: Hypertension type: essential hypertension Qualified Code(s): I10 - Essential (primary) hypertension (4) Hyperlipidemia Current Visit: Yes Status: Chronic Onset Date: 01/09/17 Code(s): E78.5 - Hyperlipidemia, unspecified Qualifiers: Hyperlipidemia type: unspecified Qualified Code(s): E78.5 - Hyperlipidemia, unspecified (5) Obstructive sleep apnea syndrome Current Visit: Yes Status: Chronic Onset Date: 08/15/11 Code(s): G47.33 - Obstructive sleep apnea (adult) (pediatric) (6) Status post right knee replacement Current Visit: Yes Status: Acute Code(s): Z96.651 - Presence of right artificial knee joint - Assessment / Plan Additional Assessment/Plan Details: replace potassium and magnesium BMP, mag level in AM renin/aldosterone level drawn, pending. consider spironolactone if BPs start to go up check PT and INR in AM will try to have [employer] evaluate CPAP and concentrator at home PT and OT, CPM today. pain control (patient VERY reluctant to take narcotics) I removed diabetes from the problem list. This patient does not have diabetes mellitus.
[2018-10-27] MEDS: Pravastatin 80mg Tab PO SCH (20:16)
[2018-10-28] MEDS: HYDROcodone-APAP 7.5 MG-325 MG TABLET PO PRN ×2 (03:15→07:23)
[2018-10-28 05:03] LABS: BLOOD UREA NITROGEN 23 mg/dL (7-22); BUN/CREATININE RATIO 25.55 (6-20)
[2018-10-28] MEDS ORDERED: Potassium Chloride Tab 10 MEQ TAB PO ONE (08:48)
[2018-10-28] MEDS: ENOXAPARIN SODIUM 120 MG/0.8 ML SYRINGE SUBCUT SCH ×2 (09:13→22:42)
[2018-10-28] MEDS: DOCUSATE 100 MG CAPSULE PO SCH ×2 (09:14→20:39)
[2018-10-28] MEDS: Beta Carot W/Vit E,C,Min Tab 1 TAB TAB PO SCH ×2 (09:14→20:39)
[2018-10-28] MEDS: BENAZEPRIL HCL 20 MG TABLET PO SCH (09:14)
[2018-10-28] MEDS: ASPIRIN EC 81 MG TABLET PO SCH (09:15)
[2018-10-28] MEDS: PROBENECID 500 MG PO SCH (10:24)
[2018-10-28] MEDS: Potassium Chloride Tab 10 MEQ TAB PO SCH (11:04)
--- NOTE | 2018-10-28 11:20 | OT.PROG ---
Progress Note Progress Note: S: pt/nursing reported that he had been on CPM already this morning for about 2 hrs. O: pt was seen in his room and upon arrival was on the CPM. He completed bed mobility with Mod A. He did complete transfer to bathroom with CGA for safety at all times. After using restroom he transferred out to the hallway to sit in w/c. It was noticed at this time that bandage did have a small amount of blood present. He was transferred downstairs where he needed min A to complete sit to stand with min A and bed mobility mOd A. He received moist heat to affected knee in preparation for activity. He completed 4-way ankle, SAQ, glute squeezes, quad sets and heel slides. He needed mod A to sit on up from supine position. He competed LAQ and light PROM while upright. A silverlon dressing was applied upon completion of therapy. A: pt is having difficulty with all exercises as most were completed passively. Highly recommend pt participate in another day or possible SB for therapy as he is lacking a lot of function and movement of LE. Recommended CPM another 3 hrs throughout the afternoon and into the night. P: continue per POC.
[2018-10-28] MEDS ORDERED: Spironolactone Tab 25 MG TAB PO ONE (11:26)
[2018-10-28] MEDS ORDERED: POTASSIUM CHLORIDE 20 MEQ TAB PO ONE (17:40)
--- NOTE | 2018-10-28 17:42 | PDOC(PROG) ---
Date of Service: 10/28/18 Time of Service: 17:37 Interval History: Patient seen and evaluated earlier. Discussed with daughter. Feels a little more alert and stronger this morning. Still struggling with quad firing in terms of his therapy. No chest pain, shortness breath, nausea or vomiting. Patient and his daughter would be interested in the patient starting on spironolactone as they are much more convinced that this could be hyperaldosteronism as one of the symptoms as muscle weakness and the patient has been frequently as well. Objective : Data - Labs CBC and BMP: 10/27/18 08:05 10/28/18 04:10 Objective : Exam - General General Appearance: No Acute Distress, Cooperative Additional General Exam Details: Vital Signs - Last Taken Temperature 98.8 F 10/28/18 16:30 Pulse Rate 76 10/28/18 16:30 Respiratory Rate 18 10/28/18 16:30 Blood Pressure 140/55 10/28/18 16:30 Pulse Ox 95 10/28/18 16:30 - Eye Eye Exam: No Scleral Icterus - ENT ENT Exam: Mucous Membranes Moist - Neck Neck Exam: JVP is not Raised - Respiratory Respiratory Exam: Clear to Auscultation - Bilaterally, Breathing Non Labored - Cardiovascular Cardiovascular Exam: RRR, No Murmur, No Clicks, No Gallops, No Rubs, No JVD - GI/Abdominal GI/Abdominal Exam: Normal Bowel Sounds, Non Tender, Non Distended, Soft - Extremities Extremities Exam: No Clubbing Present, No Edema Present, No Cyanosis Present Additional Extremities Exam Details: Right lower extremity has some edema, but overall not bad. 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 Onset Date: 06/09/14 Code(s): D68.2 - Hereditary deficiency of other clotting factors (4) Hyperlipidemia Current Visit: Yes Status: Chronic Onset Date: 01/09/17 Code(s): E78.5 - Hyperlipidemia, unspecified Qualifiers: Hyperlipidemia type: unspecified Qualified Code(s): E78.5 - Hyperlipidemia, unspecified (5) Obstructive sleep apnea syndrome Current Visit: Yes Status: Chronic Onset Date: 08/15/11 Code(s): G47.33 - Obstructive sleep apnea (adult) (pediatric) (6) Status post right knee replacement Current Visit: Yes Status: Acute Code(s): Z96.651 - Presence of right artificial knee joint - Assessment / Plan Additional Assessment/Plan Details: And spironolactone today. 25 mg by mouth daily we will started. Discontinued thiazide diuretics already. Continue potassium replacement. PT and OT. He is on Coumadin and Lovenox, INR is 1 today. I do have an INR ordered for tomorrow. Plan would be to continue therapy tomorrow, if the patient is a better job tomorrow, then probably home with outpatient therapy, but if he still struggling, a swing bed may need to be considered. The patient will think about whether he wants to do swing bed overnight.
[2018-10-28] MEDS: Pravastatin 80mg Tab PO SCH (20:39)
[2018-10-28] MEDS ORDERED: ENOXAPARIN SODIUM SUBCUT ONE (21:00)
[2018-10-29 05:10] LABS: BLOOD UREA NITROGEN 22 mg/dL (7-22)
[2018-10-29] MEDS: HYDROcodone-APAP 7.5 MG-325 MG TABLET PO PRN ×2 (07:46→12:10)
[2018-10-29] MEDS: DOCUSATE 100 MG CAPSULE PO SCH ×2 (08:46→21:22)
[2018-10-29] MEDS: BENAZEPRIL HCL 20 MG TABLET PO SCH (08:46)
[2018-10-29] MEDS: Spironolactone Tab 25 MG TAB PO SCH (08:47)
[2018-10-29] MEDS: ASPIRIN EC 81 MG TABLET PO SCH (08:47)
[2018-10-29] MEDS: Beta Carot W/Vit E,C,Min Tab 1 TAB TAB PO SCH ×2 (08:47→21:22)
--- NOTE | 2018-10-29 08:48 | PDOC(PROG) ---
General Note Progress Note: Cancelation Note: The patient was initially scheduled to have his Right TKA by Dr. Hernandez on 10/23/18. His pre-op labs were drawn the day of surgery and his potassium was 3.0. He was started on IV KCl 10 mEq/hr and received a total of 40 mEq IV KCl on 10/23/18. His surgery was canceled and rescheduled to 10/24/18. His potassium was 3.8 the morning of 10/24/18 and we proceed with his Right TKA without any complications.
--- NOTE | 2018-10-29 09:30 | ORTHO.PROG ---
Last Taken Vital Signs: Vital Signs - Last Taken Temperature 98 F 10/29/18 08:23 Pulse Rate 75 10/29/18 08:23 Respiratory Rate 12 10/29/18 08:23 Blood Pressure 134/59 10/29/18 08:23 Pulse Ox 91 10/29/18 08:23 Subjective: Patient is POD 5 from Right TKA. He reports wanting to go home today if possible. He states he does have right knee pain mainly when he is ambulating and working with PT. Currently his pain is under control. He has been taking the hydrocodone prn, but states he does not like to take it. Denies any calf pain, CP, SOB, F/C, palpitations, dizziness. Objective: Laboratory Results 10/29/18 10/29/18 04:24 04:24 PT 10.0 INR 0.98 Sodium 134 L Potassium 4.2 Chloride 103 Carbon Dioxide 28 Anion Gap 3 L BUN 22 Creatinine 0.8 Estimated GFR Not Reportable BUN/Creatinine Ratio 27.50 H Glucose 110 Calculated Osmolality 281.0 Calcium 8.7 On exam, the patient is A&O x 3 and does not appear to be in any acute distress. The dressing is c/d/i. Currently in CPM machine. AROM ankle and toes without difficulties. Negative calf tenderness. NV intact. Assessment: POD 5 s/p Right TKA with hypokalemia and muscle weakness now normalized. Plan: * H/H stable * Potassium normalized 4.2 today * DVT ppx: INR 0.98 today continue lovenox bridge with coumadin; discharge home with portable SCDs * Wound care: keep silverlon in place until POD 7, then may remove dressing and shower as normal * Pain meds: discharge home with hydrocodone * Continue PT per TKA protocol * WBAT with walker * discharge home once cleared by hospitalist and PT * Follow-up with ortho in 1 week
--- NOTE | 2018-10-29 10:15 | PDOC(PROG) ---
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 Onset Date: 06/09/14 Code(s): D68.2 - Hereditary deficiency of other clotting factors (2) HTN (hypertension) Current Visit: Yes Status: Chronic Onset Date: 06/09/14 Code(s): I10 - Essential (primary) hypertension Qualifiers: Hypertension type: essential hypertension Qualified Code(s): I10 - Essential (primary) hypertension (3) Hyperlipidemia Current Visit: Yes Status: Chronic Onset Date: 01/09/17 Code(s): E78.5 - Hyperlipidemia, unspecified Qualifiers: Hyperlipidemia type: unspecified Qualified Code(s): E78.5 - Hyperlipidemia, unspecified (4) Obstructive sleep apnea syndrome Current Visit: Yes Status: Chronic Onset Date: 08/15/11 Code(s): G47.33 - Obstructive sleep apnea (adult) (pediatric) (5) Status post right knee replacement Current Visit: Yes Status: Acute Code(s): Z96.651 - Presence of right artificial knee joint (6) Hypokalemia Current Visit: Yes Status: Acute Code(s): E87.6 - Hypokalemia
[2018-10-29] MEDS: PROBENECID 500 MG PO SCH (10:30)
[2018-10-29] MEDS: Potassium Chloride Tab 10 MEQ TAB PO SCH (10:31)
--- NOTE | 2018-10-29 10:48 | OTI REPORT ---
Thank you for the referral of Greg Lima. He was seen on 10/26/18 for an occupational therapy inpatient evaluation status post right total knee arthroplasty. SUBJECTIVE: The patient is a 73-year-old male who is being seen secondary to a right total knee arthroplasty. Prior to admission the patient was independent with all of his ADLs and functional activities. He does live at home with his daughter's help. He says he will be home by himself at times. The patient's house is on one level. He has 2-3 steps going into his home. He already has a higher toilet as well as a shower chair. His main goal is to get home safe and to be independent with transfers. PAST MEDICAL HISTORY: Past medical history can be found in the patient's medical record. OBJECTIVE FINDINGS: General observations: The patient was sitting in chair upon the therapist's arrival. The patient was educated in knee precautions. Activities of daily living: We assessed whether the patient was going to be able to dress himself or not. He is struggling with pain and is only able to reach about half way down his leg. He demonstrated not being able to dress self without adaptive devices. The patient was issued a lump roller and a sock aide and was instructed in their use. The patient used lump roller with min assist secondary to not being able to lift his leg to doff his socks and don shorts. We gave the patient a wide, plastic sock aide secondary to the patient having a wider foot. The patient was able to put sock on sock aide with min assist and pull sock on with min assist. Transfers: The patient requires max assist with sit to stand transfers. He is struggling with stand up by himself. Ambulation: The patient ambulated to the sink. He needed verbal cues in order to go heel to toe and to keep his balance. The patient stood at the sink x3 minutes to complete ADLs with min assist for balance. The patient then transferred into the wheelchair. Range of motion: The patient has upper extremity range of motion that is within functional limits. Strength: Upper extremity strength bilaterally is 4/5 in all planes and ranges in the shoulder, elbow, and wrist. ASSESSMENT: Problem List: Decreased ability to complete ADLs Decreased ability to complete functional transfers Short-Term Goals: To be met by discharge from inpatient: Patient will be able to use lump roller and sock aide with minimal verbal cues in order to improve lower extremity dressing. Patient will be able to complete sit to stands and pull pants from knee to waist with stand by assist. Patient will be able to complete functional standing activities and hygiene activities with stand by assist. Patient will have upper extremity strength of 4+/5 to assist with sit to stand transfers. Long-Term Goals: To be met following discharge from inpatient: Patient will be able to complete all functional transfers and ADLs with modified independence and use of adaptive devices to improve his safety for home. TREATMENT PLAN: Patient will be seen B.I.D during the week and one time per day over the weekend as an inpatient to address the above goals and objectives. INITIAL TREATMENT: Treatment today consisted of the initial evaluation activities only. CAT
--- NOTE | 2018-10-29 11:34 | OT.PROG ---
Progress Note Progress Note: S: pt stated he wants to get home. After visiting with him he appears to understand that he needs a little more time. O: pt was seen in his room and needed mod A with bed mobility to EOB. He then completed sit to stand from EOB with MIn A and transferred to toilet. He needed min A with the toilet transfer but toileting completed INd. Sit to stand from toilet Mod A, hygiene at sink Ind before transferring to w/c. He was transferred downstairs where he completed sit to stand from w/c mod A before completing moD A bed mobility. A: pt ambulated a little better today but is still unable to flex knee Ind. He may continue to benefit from therapy to increase function and motion of R knee post TKA. P: continue per POC.
--- NOTE | 2018-10-29 12:01 | PT.PROG ---
Progress Note Progress Note: S. patient stated that he is in some pain. he agreed to go to the therapy gym however. O. Patient ambulated 50 feet to the wheelchair and was wheeled to the therapy gym where he had heat to his knee then performed heel slides, quad sets, ankle pumps, short arc quads all x 10. Patient performed sit to stands x 10, then box step ups with #2 and #3 box x 5 each. Patient ambulated 80 feet to the wheelchair and was returned to his room where he transferred to the chair and was left with alarm and call light. A. Patient tolerated therapy poor, he continues to struggle with pain and lack of motivation, he was unable to perform quad exercises independently, he would continue to benefit from skilled therapy to increase strength, endurance and safety. P. Continue POC. Patient will perform stair training this afternoon.
[2018-10-29] MEDS: ENOXAPARIN SODIUM 120 MG/0.8 ML SYRINGE SUBCUT SCH ×2 (12:10→21:22)
--- NOTE | 2018-10-29 16:12 | PDOC(PROG) ---
Date of Service: 10/29/18 Time of Service: 10:00 Interval History: Subjective Patient apparently doing more with physical therapy today compared to yesterday. He is denying other symptoms apart from some pain in his knee. Objective : Data - Labs CBC and BMP: 10/27/18 08:05 10/29/18 04:24 Objective : Exam - General General Appearance: No Acute Distress, Cooperative - Head Head Exam: Normal Inspection - Eye Eye Exam: Normal Appearance - ENT ENT Exam: Normal Exam - Neck Neck Exam: Normal Inspection - Respiratory Respiratory Exam: Clear to Auscultation - Bilaterally - Cardiovascular Cardiovascular Exam: RRR - GI/Abdominal GI/Abdominal Exam: Normal Bowel Sounds, Non Tender, Non Distended, Soft, No Organomegaly - Rectal Rectal Exam: Deferred - External Exam: Deferred Exam: Deferred - Extremities Additional Extremities Exam Details: Dressing up to the right knee. 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 I did increase the dosage of his Coumadin he is normally on about 11 mg a day, so we'll put him on 10 mg tonight. Will repeat his labs tomorrow. Code(s): D68.2 - Hereditary deficiency of other clotting factors (2) HTN (hypertension) Current Visit: Yes Status: Chronic Onset Date: 06/09/14 Comment: Same med Code(s): I10 - Essential (primary) hypertension Qualifiers: Hypertension type: essential hypertension Qualified Code(s): I10 - Essential (primary) hypertension (3) Hyperlipidemia Current Visit: Yes Status: Chronic Onset Date: 01/09/17 Comment: Same medications Code(s): E78.5 - Hyperlipidemia, unspecified Qualifiers: Hyperlipidemia type: unspecified Qualified Code(s): E78.5 - Hyperlipidemia, unspecified (4) Status post right knee replacement Current Visit: Yes Status: Acute Comment: Continue PT and OT. Maybe home tomorrow. Code(s): Z96.651 - Presence of right artificial knee joint (5) Hypokalemia Current Visit: Yes Status: Acute Comment: Potassium normalized continue spironolactone Code(s): E87.6 - Hypokalemia
--- NOTE | 2018-10-29 16:46 | OT.PROG ---
Progress Note Progress Note: S: pt stated her preferred a shower after completing PT. O: pt was seen after completing PT and set up for shower completed for him. He completed sit to stand from w/c with Mod A and transferred to shower. He completed doffing of LE/UE Ind with exception to socks which were max A. He completed all showering INd but needed mIn A with drying of LE and back. He donned LE garments with min A with use of game attendant and sock aid. He completed transfer back to his room approx 30 ft with CGA for safety. He was left upright in chair with call light within reach. A: pt tolerated ADL's showering well. He could improve his ability to driss LE/UE clothing more Ind and with use of A. E. Recommend another day of therapy to improve overall function. P: continue per POC.
--- NOTE | 2018-10-29 16:49 | PT.PROG ---
Progress Note Progress Note: S. patient stated that he is feeling a little better this afternoon compared to this morning. O. Patient ambulated 80 feet to the wheelchair and was wheeled to the therapy gym where he had heat to his knee then performed heel slides, quad sets, ankle pumps, short arc quads all x 10. Patient performed sit to stands x 10, then box step ups with #3 box x 5. Patient ambulated 80 feet to the wheelchair and was wheeled to the stair well and ascended and descended 3 stairs then was returned to his room where he transferred to the chair and was left with alarm and call light. A. 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 P. Continue POC.
[2018-10-29] MEDS ORDERED: Warfarin 5 MG TAB PO SCH (21:00)
[2018-10-29] MEDS: Pravastatin 80mg Tab PO SCH (21:22)
[2018-10-30 04:55] LABS: BLOOD UREA NITROGEN 21 mg/dL (7-22); BUN/CREATININE RATIO 26.25 (6-20)
[2018-10-30] MEDS: HYDROcodone-APAP 7.5 MG-325 MG TABLET PO PRN ×2 (07:25→13:39)
[2018-10-30] MEDS: ENOXAPARIN SODIUM 120 MG/0.8 ML SYRINGE SUBCUT SCH (10:39)
[2018-10-30] MEDS: Spironolactone Tab 25 MG TAB PO SCH (10:40)
[2018-10-30] MEDS: DOCUSATE 100 MG CAPSULE PO SCH (10:40)
[2018-10-30] MEDS: ASPIRIN EC 81 MG TABLET PO SCH (10:40)
[2018-10-30] MEDS: BENAZEPRIL HCL 20 MG TABLET PO SCH (10:40)
[2018-10-30] MEDS: Beta Carot W/Vit E,C,Min Tab 1 TAB TAB PO SCH (10:40)
--- NOTE | 2018-10-30 11:16 | PT AM DAY ---
Diagnosis : Right Total Knee Arthroplasty AM - Physical Therapy S: The patient states he really wants to go home today. O: The patient was brought down to the therapy department by OT. He was able to show some quad control today in open chain. He did better with his closed chain exercises. He achieved -3 to 90 degrees of passive movement. He was able to do three steps and stairs today with stand by assist of one. A: The patient can probably go home as long as he has 24-hour care at home. We would like to see him after lunch again and then start outpatient therapy tomorrow. P: Continue seeing patient BID during the week and one time per day over the weekend until discharge. CAT
[2018-10-30] MEDS: PROBENECID 500 MG PO SCH (12:01)
--- NOTE | 2018-10-30 15:45 | DCSUMMARY ---
Hospitalization Summary Admit Date: 10/24/2018 Discharge Date: 10/30/18 Hospital Course: Discharge diagnoses 1. Status post right knee replacement 2. History of PE in the past on chronic anticoagulation 3. History of hypertension 4. History of factor V Leiden mutation 5. History of gout 6. History of macular degeneration 7. History of sleep apnea on oxygen at night 8. Hypokalemia Hospital course This is 73 years old male with medical history significant for history of gout, hypertension, history of chronic anticoagulation secondary to her previous PEs, history of factor V Leiden mutation who came into the hospital to have right knee replacement and was done by Dr. Hernandez the hospitalist service were consulted for management of medical issues. Apparently he had some hypokalemia before the surgery so he did receive potassium infusion prior to surgery. he was started recently on a diuretic. His postoperative course was completed by hypokalemia and weakness. The potassium was replaced the diuretics that he was chlorthalidone and was discontinued. He was put on spironolactone instead. Because of his history of PE before Lovenox was restarted postsurgery in addition to Coumadin. I saw him later on during hospital stay we continued with the same plan continued with p hysical therapy. On the day of discharge physical therapy felt that he is ready to be discharged home so we discharged him to continue physical therapy as an outpatient. I did advise to continue Lovenox until INR is therapeutic. I did write a prescription for Aldactone and DC'd the potassium supplementation and the chlorthalidone. Dr. Farfan did send test for hyperaldosteronism which I don't have the results yet. I think he needs a repeat chemistry post discharge to make sure that his potassium remained stable. He would also need follow-up on his INR. Discharge instruction Regular Activity as tolerated Medications Current Medication(s) Medication Instructions Recorded Confirmed Type Aspirin [Aspirin EC] 81 mg PO QD #30 tab 02/03/15 10/24/18 History vit C 250 mg-E 200 unit-zinc 40 1 tab PO BID #1 cap 05/28/18 10/24/18 Rx mg-copper 1 [id number] capsule benazepril 40 mg tablet 40 mg PO QD #90 tab 09/04/18 10/24/18 Rx pravastatin 80 mg tablet 80 mg PO QHS #90 tab 09/04/18 10/24/18 Rx probenecid 500 mg tablet 500 mg PO QD #90 tab 09/04/18 10/24/18 Rx warfarin 7.5 mg tablet See Rx Instructions .ROUTE 09/04/18 10/24/18 Rx .COMPLEX #90 tablet enoxaparin 120 mg/0.8 mL 120 mg SUBCUT Q12H #8 ml 10/02/18 10/24/18 Rx subcutaneous syringe HYDROcodone/APAP 7.5/325 Tab 1 - 2 tab PO Q4H PRN tab 10/30/18 Rx [[place] 7.5/325 Tab] Spironolactone [Aldactone] 25 mg PO DAILY #30 tab 10/30/18 Rx Follow-up with PCP and with Dr. Hernandez Condition at discharge was stable for discharge Exam - Vitals Vital Signs: Vital Signs Temperature 97.7 F Temperature Source Temporal Artery Scan Pulse Rate [Apical] 83 Pulse Rate [Pulse Oximeter] 65 Pulse Rate 67 Respiratory Rate 18 Blood Pressure [Right Arm] 138/69 Blood Pressure [Left Arm] 157/78 Blood Pressure 149/68 Pulse Ox 90 Oxygen Flow Rate 0 Oxygen Delivery Method Room Air Height 6 ft Weight 264 lb 6.4 oz - General General Appearance: No Acute Distress, Cooperative - Head Head Exam: Normal Inspection - Eye Eye Exam: POSITIVE: Normal Appearance - ENT ENT Exam: POSITIVE: Normal Exam - Neck Neck Exam: Normal Inspection - Respiratory Respiratory Exam: POSITIVE: Clear to Auscultation - Bilaterally - Cardiovascular Cardiovascular Exam: POSITIVE: RRR - GI/Abdominal GI/Abdominal Exam: POSITIVE: Normal Bowel Sounds, Non Tender, Non Distended, Soft, No Organomegaly - Rectal Rectal Exam: POSITIVE: Deferred - External Exam: POSITIVE: Deferred - Extremities Extremities Exam: POSITIVE: Normal Inspection - Back Back Exam: POSITIVE: Normal Inspection - Neurological Neurological Exam: POSITIVE: Alert, Oriented x 3, CN II-XII Intact, No Facial Droop, Speech Intact / Clear, Moves All Extremities Equally Patient Problems - Patient Problem List (1) Factor V deficiency Status: Chronic Onset Date: 06/09/14 Code(s): D68.2 - Hereditary deficiency of other clotting factors Category: Medical (2) HTN (hypertension) Status: Chronic Onset Date: 06/09/14 Code(s): I10 - Essential (primary) hypertension Qualifiers: Hypertension type: essential hypertension Qualified Code(s): I10 - Essential (primary) hypertension Category: Medical (3) Hyperlipidemia Status: Chronic Onset Date: 01/09/17 Code(s): E78.5 - Hyperlipidemia, unspecified Qualifiers: Hyperlipidemia type: unspecified Qualified Code(s): E78.5 - Hyperlipidemia, unspecified Category: Medical (4) Status post right knee replacement Status: Acute Code(s): Z96.651 - Presence of right artificial knee joint Category: Surgical (5) Hypokalemia Status: Acute Code(s): E87.6 - Hypokalemia Category: Medical
[2018-10-30 16:30] VITALS: BP 138/61; RESP 20; TEMP 98.3; O2SAT 91
--- NOTE | 2018-10-30 16:32 | OT.PROG ---
Progress Note Progress Note: S: pt reported he was doing good. He still would rather go home than stay in hospital but he understands if he needs to. O: pt was seen in his room and completed doffing/donning of socks with use of [place] operator INd. He then completed toilet transfer with CGa of safety. He then completed hygiene at sink Ind and ambulated with use of walker to hallway approx 8 ft. He was transferred down to therapy where he completed PT. A: pt participated well in activities this morning and demo ability to driss LE and with use of A.E. P: Continue per POC.
--- NOTE | 2018-10-31 09:29 | PT PM DAY ---
Diagnosis : Right Total Knee Arthroplasty PM - Physical Therapy S: The patient reports he believes that once he is finished with his afternoon physical therapy he will be able to go home. O: Today's therapy consisted of the patient ambulating 50 feet before requesting a wheelchair. He was brought downstairs to therapy where he received an application of moist heat pack x20 minutes including set up to the right knee followed by micro-current massage to the right knee with an appropriate dressing put over his incision. He performed therapeutic exercises including straight leg raises, short arc quads, long arc quads, hip abduction/adduction, and sit to stands. He received neuromuscular reeducation in the form of Kinesio taping for lymphatic drainage and edema. He then ambulated all the way from the PT gym to the stairwell where he ascended and descended 4 steps with a step to gait pattern with his walker, gait belt, and contact guard assistance. He was then taken back to his room. A: The patient was able to perform all bed mobility with modified independence, just with increased time as well as appropriate demonstration of ascending and descending stairs. At this time he is appropriate to be discharged home and begin outpatient therapy later this week. P: Patient will be discharged to home. CAT
[2018-10-31 11:12] LABS: Renin Activity, Plasma 10 ng/mL/h
== END 2018-10-30 18:24 | disposition home or self-care (01) | DRG 470 ==
LOC: OPS 13:51 → MED/SURG 20:01
PROVIDERS: ADMIT Orthopaedic Surgery; ATTEND Orthopaedic Surgery